=== PATIENT | male | born 1950 | race Caucasian/White ===

== ENCOUNTER 2024-11-06 16:50 | Emergency (ER) | payer MEDICARE, OTHER ==
[2024-11-06] MEDS ORDERED: Aspirin Chewable 81 MG TAB ONE (17:13)
[2024-11-06 17:23] LABS: Hematocrit 42.6 % (42.0-52.0); Hemoglobin 14.3 g/dL (14.0-18.0); Mean Corpuscular HGB CONC 33.6 g/dL (32.0-36.0); Mean Corpuscular Hemoglobin 28.9 pg (27.0-31.0); Mean Platelet Volume 4.7 fL (7.4-10.4); Platelet Count 241 10x3/uL (130-400); Red Blood Cell (RBC) Count 4.95 mill/uL (4.70-6.10); White Blood Cell (WBC) Count 6.3 10x3/uL (4.8-10.8)
[2024-11-06 17:25] LABS: ALT (SGPT) 22 U/L (8-55); AST (SGOT) 20 U/L (5-34); Albumin 4.4 g/dL (3.4-4.8); Alkaline Phosphatase 71 U/L (40-110); Anion Gap 15 mmol/L (10-20); BUN (Urea Nitrogen) 12 mg/dL (8.4-25.7); Bilirubin, Total 0.5 mg/dL (0.2-1.2); Calc. Creatinine Clearance 0 mL/min (70-130); Calcium 9.4 mg/dL (7.8-10.44); Carbon Dioxide 25 mmol/L (23-31); Chloride 103 mmol/L (98-107); Estimated GFR 90; Glucose 92 mg/dL (83-110); Potassium 3.7 mmol/L (3.5-5.1); Protein, Total 7.4 g/dL (5.8-8.1); Sodium 139 mmol/L (136-145); Troponin I Less than 0.010 ng/mL (< 0.028)
[2024-11-06 17:40] LABS: Eosinophils 5 % (0-10); Lymphocytes 20 % (21-51); MDiff Complete? YES; Monocytes 16 % (0-10); Neutrophil 56 % (42-75)
[2024-11-06 20:29] LABS: Troponin I 0.011 ng/mL (< 0.028)
== END 2024-11-06 20:42 | disposition home or self-care (01) ==
LOC: BURERS 16:50
DX: R07.89 Other chest pain (principal)
CPT/HCPCS: 36415; 71045; 80053; 84484; 85025; 93005